=== PATIENT | male | born 1965 | race Caucasian/White ===

== ENCOUNTER 2017-02-12 09:16 | Inpatient (IN) | payer MEDICARE, MEDICAID ==
[~2017-02-12] VITALS: Ht 185.4 cm; Wt 97.3 kg
[~2017-02-12 09:16] MED LIST: EUC50OIN2 TP; FISH OIL/SALMO500 MG PO; INHALER IH; LURA40 PO; NAPR220C15 PO; OXCA300T PO
[2017-02-12] MEDS ORDERED: OXYM30SP27 NASAL (09:36)
[2017-02-12] MEDS ORDERED: FLUT12AE3 IH (09:36)
[2017-02-12] MEDS ORDERED: ASPI-1093 PO (09:36)
[2017-02-12] MEDS ORDERED: LURA80 PO (09:36)
[2017-02-12 10:30] LABS: BASOPHILS % (AUTO) 0.2 % (0.0-2.0); EOSINOPHILS % (AUTO) 0 % (1.0-6.0); HEMATOCRIT 38.4 % (41-53); HEMOGLOBIN 12.4 g/dL (13.5-17.5); LYMPHOCYTES # (AUTO) 0.7 K/uL (1.0-4.8); MEAN CORPUSCULAR HEMOGLOBIN 29.9 pg (26.0-34.0); MEAN CORPUSCULAR HGB CONC 32.3 G/dL (31.0-37.0); MEAN CORPUSCULAR VOLUME 93 fL (80-100); MONOCYTES # (AUTO) 0.7 K/uL (0.1-1.0); MONOCYTES % (AUTO) 5.6 % (2.0-9.0); NEUTROPHILS # (AUTO) 10.3 K/uL (1.8-7.7); PLATELET COUNT (AUTO) 287 K/uL (150-450); RED BLOOD CELL COUNT(AUTO) 4.13 MIL/uL (4.50-5.90); WHITE BLOOD COUNT (AUTO) 11.7 K/uL (4.5-11.0)
[2017-02-12 10:33] LABS: NEUTROPHILS % (AUTO) 88.2 % (40.0-70.0)
[2017-02-12] MEDS ORDERED: FAMOTIDINE 20 MG TABLET PO ONE (10:45)
[2017-02-12 10:47] LABS: ANION GAP 8 mmol/L (8-16); CALCIUM, TOTAL 8.9 mg/dL (8.8-10.5); CARBON DIOXIDE 29 mmol/L (22-29); CHLORIDE 103 mmol/L (98-107); CREATININE 0.89 mg/dL (0.60-1.30); GLOMERULAR FILTR. RATE CALC > 60 mL/min (>60); SODIUM SERUM 140 mmol/L (136-145); UREA NITROGEN, BLOOD 19 mg/dL (7-18)
[2017-02-12 10:51] LABS: ALANINE AMINOTRANSFERASE 31 U/L (12-78); ALBUMIN 3.5 g/dL (3.4-5.0); ASPARTATE AMINOTRANSFERASE 21 U/L (15-37); BILIRUBIN,TOTAL 0.4 mg/dL (0.1-1.0); TOTAL PROTEIN, SERUM 6.5 g/dL (6.4-8.2)
[2017-02-12] MEDS ORDERED: QUEtiapine FUMARATE 100 MG TABLET PO ONE (11:15)
[2017-02-12] MEDS ORDERED: LORazepam 2 MG TABLET PO ONE (11:15)
[2017-02-12] MEDS ORDERED: ZOLPIDEM TARTRATE 10 MG TABLET PO PRN (11:45)
[2017-02-12] MEDS ORDERED: QUEtiapine FUMARATE 100 MG TABLET PO PRN (11:45)
[2017-02-12] MEDS ORDERED: FLUTICASONE/VILANTEROL 200-25 MCG/INH INHALER [14] IH ONE (12:00)
[2017-02-12] MEDS ORDERED: ALBUTEROL SULFATE HFA 90 MCG/PUFF 8 GM INHALER IH ONE (12:00)
[2017-02-12 12:53] LABS: CHOL/HDL RATIO 2.2 (4.2-7.3)
[2017-02-12] MEDS ORDERED: PNEUMOCOCCAL VACCINE POLYVALENT 0.5 ML VIAL [PPSV23] IM ONE (14:15)
[2017-02-12 14:32] VITALS: BP 114/73
[2017-02-12 14:32] LABS: APPEARANCE,URINE CLOUDY (CLEAR); GLUCOSE, URINE (UA) NEGATIVE (NEGATIVE); KETONES,URINE NEGATIVE (NEGATIVE); LEUKOCYTE ESTERASE ,URINE NEGATIVE (NEGATIVE); OCCULT BLOOD,URINE NEGATIVE (NEGATIVE); PH,URINE 6.5 (5.0-8.0); PROTEIN,URINE POS 1+ (NEGATIVE)
[2017-02-12 14:33] LABS: ADD UA MICROSCOPIC NO
[2017-02-12 17:04] VITALS: BP 124/91
[2017-02-13 03:06] VITALS: BP 127/95
[2017-02-13 08:30] VITALS: BP 124/90
[2017-02-13] MEDS ORDERED: CloNIDine HCL 0.1 MG TABLET PO PRN (08:45)
[2017-02-13] MEDS ORDERED: BENZOCAINE/MENTHOL LOZENGE [8 LOZENGES/PACKET] MM PRN (08:45)
[2017-02-13] MEDS ORDERED: ONDANSETRON HCL 4 MG TABLET PO PRN (08:45)
[2017-02-13] MEDS ORDERED: LOPERAMIDE HCL 2 MG CAPSULE PO PRN (08:45)
[2017-02-13] MEDS ORDERED: IBUPROFEN 600 MG TABLET PO PRN (08:45)
[2017-02-13] MEDS ORDERED: MAGNESIUM HYDROXIDE SUSPENSION 30 ML UDCUP PO PRN (08:45)
[2017-02-13] MEDS ORDERED: PETROLATUM,WHITE 71 GM JELLY TP PRN (08:45)
[2017-02-13] MEDS ORDERED: MAG HYDROX/AL HYDROX/SIMETH ES 30 ML SUSPENSION UDCUP PO PRN (08:45)
[2017-02-13] MEDS ORDERED: ACETAMINOPHEN 325 MG TABLET PO PRN (08:45)
[2017-02-13] MEDS ORDERED: BACITRACIN 28.4 GM OINTMENT TP PRN (08:45)
[2017-02-13] MEDS: ATENOLOL 25 MG TABLET PO SCH (09:11)
[2017-02-13] MEDS: OMEPRAZOLE 20 MG CAPSULE PO SCH (09:12)
[2017-02-13] MEDS: FLUTICASONE/VILANTEROL 200-25 MCG/INH INHALER [14] IH SCH (09:12)
[2017-02-13] MEDS: NICOTINE 21 MG/24 HOUR PATCH TD SCH (09:15)
[2017-02-13] MEDS: LORazepam 2 MG TABLET PO PRN ×2 (13:04→20:04)
[2017-02-13 17:07] VITALS: BP 118/72
[2017-02-13] MEDS: QUEtiapine FUMARATE 200 MG TABLET PO SCH (20:04)
[2017-02-14 08:00] VITALS: BP 121/83
[2017-02-14] MEDS: FLUTICASONE/VILANTEROL 200-25 MCG/INH INHALER [14] IH SCH (08:13)
[2017-02-14] MEDS: OMEPRAZOLE 20 MG CAPSULE PO SCH (08:14)
[2017-02-14] MEDS: NICOTINE 21 MG/24 HOUR PATCH TD SCH (08:14)
[2017-02-14] MEDS: ATENOLOL 25 MG TABLET PO SCH (08:14)
[2017-02-14] MEDS: ALBUTEROL SULFATE HFA 90 MCG/PUFF 8 GM INHALER IH PRN (12:38)
[2017-02-14 16:00] VITALS: BP 117/72
[2017-02-14] MEDS: QUEtiapine FUMARATE 200 MG TABLET PO SCH (20:15)
[2017-02-14] MEDS: LORazepam 2 MG TABLET PO PRN (20:18)
[2017-02-15 08:00] VITALS: BP 112/73
[2017-02-15] MEDS: FLUTICASONE/VILANTEROL 200-25 MCG/INH INHALER [14] IH SCH (08:06)
[2017-02-15] MEDS: OMEPRAZOLE 20 MG CAPSULE PO SCH (08:06)
[2017-02-15] MEDS: LORazepam 2 MG TABLET PO PRN ×3 (08:06→20:12)
[2017-02-15] MEDS: FERROUS SULFATE 325 MG EC TABLET PO SCH (08:06)
[2017-02-15] MEDS: ATENOLOL 25 MG TABLET PO SCH (08:06)
[2017-02-15] MEDS: NICOTINE 21 MG/24 HOUR PATCH TD SCH (09:19)
[2017-02-15] MEDS: ALBUTEROL SULFATE HFA 90 MCG/PUFF 8 GM INHALER IH PRN ×2 (13:20→20:14)
[2017-02-15 16:00] VITALS: BP 103/59
[2017-02-15] MEDS: QUEtiapine FUMARATE 200 MG TABLET PO SCH (20:12)
[2017-02-16 06:28] VITALS: BP 101/72
[2017-02-16 06:41] LABS: BASOPHILS % (AUTO) 0.3 % (0.0-2.0); EOSINOPHILS % (AUTO) 5.5 % (1.0-6.0); HEMATOCRIT 40.4 % (41-53); HEMOGLOBIN 13.4 g/dL (13.5-17.5); LYMPHOCYTES # (AUTO) 1.5 K/uL (1.0-4.8); LYMPHOCYTES % (AUTO) 24.6 % (22.0-44.0); MEAN CORPUSCULAR HEMOGLOBIN 31.2 pg (26.0-34.0); MEAN CORPUSCULAR HGB CONC 33.3 G/dL (31.0-37.0); MEAN CORPUSCULAR VOLUME 94 fL (80-100); MONOCYTES # (AUTO) 0.5 K/uL (0.1-1.0); MONOCYTES % (AUTO) 8.5 % (2.0-9.0); NEUTROPHILS # (AUTO) 3.7 K/uL (1.8-7.7); NEUTROPHILS % (AUTO) 61.1 % (40.0-70.0); PLATELET COUNT (AUTO) 248 K/uL (150-450); RED BLOOD CELL COUNT(AUTO) 4.31 MIL/uL (4.50-5.90); RED CELL DISTRIBUTION WIDTH 14.1 % (11.5-14.5)
[2017-02-16 07:23] LABS: ANION GAP 7 mmol/L (8-16); CALCIUM, TOTAL 8.6 mg/dL (8.8-10.5); CARBON DIOXIDE 29 mmol/L (22-29); CHLORIDE 99 mmol/L (98-107); CREATININE 0.78 mg/dL (0.60-1.30); GLOMERULAR FILTR. RATE CALC > 60 mL/min (>60); PHOSPHORUS 4.4 mg/dL (2.5-4.9); POTASSIUM 4.7 mmol/L (3.5-5.1); SODIUM SERUM 135 mmol/L (136-145); UREA NITROGEN, BLOOD 19 mg/dL (7-18)
[2017-02-16] MEDS: FERROUS SULFATE 325 MG EC TABLET PO SCH (08:00)
[2017-02-16] MEDS: FLUTICASONE/VILANTEROL 200-25 MCG/INH INHALER [14] IH SCH (08:08)
[2017-02-16] MEDS: NICOTINE 21 MG/24 HOUR PATCH TD SCH (08:09)
[2017-02-16] MEDS: ATENOLOL 25 MG TABLET PO SCH (08:09)
[2017-02-16] MEDS: OMEPRAZOLE 20 MG CAPSULE PO SCH (08:09)
[2017-02-16 08:10] VITALS: BP 104/68
[2017-02-16] MEDS: ALBUTEROL SULFATE HFA 90 MCG/PUFF 8 GM INHALER IH PRN (12:52)
[2017-02-16] MEDS: LORazepam 2 MG TABLET PO PRN (13:21)
[2017-02-16] MEDS: QUEtiapine FUMARATE 200 MG TABLET PO SCH (21:13)
[2017-02-17 06:29] VITALS: BP 102/71
[2017-02-17] MEDS: FERROUS SULFATE 325 MG EC TABLET PO SCH (08:01)
[2017-02-17] MEDS: FLUTICASONE/VILANTEROL 200-25 MCG/INH INHALER [14] IH SCH (08:01)
[2017-02-17] MEDS: OMEPRAZOLE 20 MG CAPSULE PO SCH (08:01)
[2017-02-17] MEDS: ATENOLOL 25 MG TABLET PO SCH (08:01)
[2017-02-17] MEDS: ALBUTEROL SULFATE HFA 90 MCG/PUFF 8 GM INHALER IH PRN (08:04)
[2017-02-17] MEDS: LORazepam 2 MG TABLET PO PRN (08:06)
[2017-02-17] MEDS: NICOTINE 21 MG/24 HOUR PATCH TD SCH (08:07)
[2017-02-17 08:10] VITALS: BP_SYST 111; BP_SYST 142; BP_DIAS 65; BP_DIAS 96
[2017-02-17] MEDS ORDERED: QUET200T PO (12:21)
[2017-02-17] MEDS ORDERED: FERR-89 PO (12:28)
[2017-02-17] MEDS ORDERED: ATEN25 PO (12:28)
[2017-02-17] MEDS ORDERED: FLUT1BLS PO (12:29)
[2017-02-17] MEDS ORDERED: OMEP20 PO (12:29)
== END 2017-02-17 14:15 | disposition home or self-care (01) | DRG 885 ==
LOC: EEVIPCON 09:19 → EMS 09:19 → 3EX 12:51
DX: F25.1 Schizoaffective disorder, depressive type (principal); F12.90 Cannabis use, unspecified, uncomplicated; J44.9 Chronic obstructive pulmonary disease, unspecified; K21.9 Gastro-esophageal reflux disease without esophagitis; I10 Essential (primary) hypertension; K59.00 Constipation, unspecified; Z72.0 Tobacco use; G47.00 Insomnia, unspecified; F10.20 Alcohol dependence, uncomplicated; Y90.0 Blood alcohol level of less than 20 mg/100 ml; D72.829 Elevated white blood cell count, unspecified; D64.9 Anemia, unspecified
CPT/HCPCS: 83735; 84100; 93005; 99285; G0480; J3535

== ENCOUNTER 2018-12-19 22:17 | Emergency (ER) | payer MEDICARE, OTHER ==
[~2018-12-19 22:17] MED LIST changes: +ATEN25TA PO; -EUC50OIN2 TP; +FERR-89 PO; -FISH OIL/SALMO500 MG PO; +FLUT1BLS PO; -INHALER IH; -LURA40 PO; -NAPR220C15 PO; +OMEP20 PO; -OXCA300T PO; +QUET200T PO
== END 2018-12-19 22:30 | disposition left against medical advice (07) ==
LOC: EMS 22:17
DX: Z02.89 Encounter for other administrative examinations (principal); Z53.21 Procedure and treatment not carried out due to patient leaving prior to being seen by health care provider